=== PATIENT | female | born 1945 | race Caucasian/White ===

== ENCOUNTER 2016-10-30 17:40 | Emergency (ER) | payer MEDICAID ==
[2016-10-30 18:34] VITALS: BP 110/67
[2016-10-30 19:21] LABS: Albumin 3.5 g/dL (3.9-5); Albumin/Globulin Ratio 0.9 %; Alkaline Phosphatase 57 units/L (35-129); Blood Urea Nitrogen 17 mg/dL (7-17); Calcium 9.6 mg/dL (8.4-10.2); Carbon Dioxide 25 mmol/L (22-30); Chloride 92.8 mmol/L (98-107); Glucose 157 mg/dL (65-100); Sodium 141 mmol/L (137-145); Total Protein 7.3 g/dL (6.3-8.2)
[2016-10-30] MEDS ORDERED: NACL 0.9% 1000 ML 1,000 ML IV ONE (19:23)
[2016-10-30 19:30] LABS: Alanine Aminotransferase 21 units/L (7-56); Anion Gap 27 mmol/L; Potassium 3.7 mmol/L (3.6-5.0)
--- NOTE | 2016-10-30 19:36 | Emergency Department Report ---
- General Chief complaint: Medical Clearance Stated complaint: MH/MED CLEARANCE ANCHOR/DEHYDRATED Time Seen by Provider: 10/30/16 19:07 Source: patient, family Mode of arrival: Wheelchair Limitations: No Limitations - History of Present Illness MD Complaint: generalized weakness -: Gradual Location: generalized Severity: mild Severity scale (0 -10): 4 Improves with: none Worsens with: none Context: history of similar, depression Associated Symptoms: denies: chest pain, confusion, dark stools, diaphoresis, dysuria, easy bruising, fever/chills, headaches, loss of appetite, nausea/ vomiting, myalgias, rash, shortness of breath - Related Data Allergies Allergy/AdvReac Type Severity Reaction Status Date / Time Penicillins AdvReac Rash Verified 10/30/16 17:58 Sulfa (Sulfonamide AdvReac Rash Verified 10/30/16 17:58 Antibiotics) ED Review of Systems ROS: Stated complaint: MH/MED CLEARANCE ANCHOR/DEHYDRATED Other details as noted in HPI Comment: All other systems reviewed and negative ED Past Medical Hx - Past Medical History Previous Medical History?: Yes Additional medical history: Thyroid - Surgical History Past Surgical History?: Yes Hx Cholecystectomy: Yes - Social History Smoking Status: Never Smoker Substance Use Type: None ED Physical Exam - General Limitations: No Limitations General appearance: lethargic - Head Head exam: Present: atraumatic, normocephalic - Eye Eye exam: Present: normal appearance, PERRL - ENT ENT exam: Present: mucous membranes dry - Neck Neck exam: Present: normal inspection - Respiratory Respiratory exam: Present: normal lung sounds bilaterally. Absent: respiratory distress - Cardiovascular Cardiovascular Exam: Present: regular rate, normal rhythm. Absent: systolic murmur, diastolic murmur, rubs, gallop - GI/Abdominal GI/Abdominal exam: Present: soft, normal bowel sounds - Extremities Exam Extremities exam: Present: normal inspection - Back Exam Back exam: Present: normal inspection - Neurological Exam Neurological exam: Present: alert, oriented X3 - Psychiatric Psychiatric exam: Present: normal affect, normal mood - Skin Skin exam: Present: warm, dry, intact, normal color. Absent: rash ED Course Vital Signs 10/30/16 10/30/16 10/30/16 17:52 18:03 18:10 Temperature 98.1 F Pulse Rate 96 H 83 Respiratory 16 14 Rate Blood Pressure 109/67 Blood Pressure [Right] O2 Sat by Pulse 98 91 97 Oximetry 10/30/16 10/30/16 18:20 18:34 Temperature 98.1 F Pulse Rate 80 81 Respiratory 14 12 Rate Blood Pressure 110/67 Blood Pressure 110/67 [Right] O2 Sat by Pulse 93 96 Oximetry ED Medical Decision Making - Lab Data Result diagrams: 10/30/16 18:15 - Radiology Data Radiology results: report reviewed, image reviewed - Medical Decision Making patient been doing well here in the ER. Family wanted to get her medically cleared cause she will be going to [facility] for further evaluation. labs negative , and head CT negative too , KUB with constipation and rectal impacted, tried manually decompression with minimal stool. Critical care attestation.: If time is entered above; I have spent that time in minutes in the direct care of this critically ill patient, excluding procedure time. ED Disposition Clinical Impression: Dehydration Disposition: DC-01 TO HOME OR SELFCARE Is pt being admited?: No Does the pt Need Aspirin: No Condition: Stable Instructions: Dehydration (ED) Referrals: PRIMARY CARE, [Primary Care Provider] - 3-5 Days Time of Disposition: 21:35
--- NOTE | 2016-10-30 20:38 | Cat Scan Report ---
FINAL REPORT PROCEDURE: CT HEAD/BRAIN WO CON TECHNIQUE: Computerized tomography of the head was performed without contrast material. HISTORY: Medical Clearance Psych, altered mental status COMPARISON: No prior studies are available for comparison. FINDINGS: No CT evidence of intracranial mass, hemorrhage, acute territorial infarction, or hydrocephalus. The intracranial arteries are symmetric in density. No acute fracture is seen. Visualized paranasal sinuses or mastoids are aerated. IMPRESSION: No CT evidence of acute abnormality
--- NOTE | 2016-10-30 20:51 | XRay Report ---
FINAL REPORT PROCEDURE: XR ABDOMEN 1V AP TECHNIQUE: Abdominal radiograph, single supine AP view. HISTORY: Abdominal pain COMPARISON: No prior studies are available for comparison. FINDINGS: No gas-filled dilated loops of bowel are seen. There is a large volume of stool in the rectum. Surgical clips are present in the right upper quadrant of the abdomen. No abnormal calcifications are seen. Diffuse lumbar spine degenerative changes are present. IMPRESSION: Large volume of stool is noted in the rectum. No dilated loops of bowel are identified
== END 2016-10-30 22:35 | disposition home or self-care (01) ==
LOC: ED 17:40 → EEVIPCON 17:40 → ED 22:35
DX: E86.0 Dehydration (principal); Z90.49 Acquired absence of other specified parts of digestive tract; Z88.2 Allergy status to sulfonamides; Z88.0 Allergy status to penicillin
CPT/HCPCS: 36415; 70450; 74000; 80048; 80053; 93005; 93010; 96360; 99284; J7030